=== PATIENT | female | born 1970 | race Caucasian/White ===

== ENCOUNTER 2019-06-26 16:13 | Emergency (ER) | payer OTHER ==
[2019-06-26 16:28] VITALS: BMI 34.9
--- NOTE | 2019-06-26 19:51 | PDOC ---
Attending Attestation - Resident Resident Name: Nikunj Kulkarni - HPI HPI: 06/26/19 19:58 see below - Physicial Exam PE: 06/26/19 19:58 see below - Medical Decision Making 06/26/19 19:59 Patient dressed herself stated she was leaving because she did not want to be in the hospital any longer and has been waiting too long She is awake alert and oriented x4, able to communicate with staff she was again offered evaluation and care which she has refused
[2019-06-26] MEDS ORDERED: SODIUM CHLORIDE 2,517 ML IV ONE (20:38)
--- NOTE | 2019-06-26 20:43 | PDOC ---
History of Present Illness - General Chief Complaint: Weakness Stated Complaint: HEADACHE/DIFFICULTY BREATHING Time Seen by Provider: 06/26/19 19:51 History Source: Patient Exam Limitations: No Limitations - History of Present Illness Initial Comments: 06/26/19 21:27 48 yo female pmh leukemia (receiving chemo and all care through [facility]) CHF on lasix presents to the ED for 1 day of fevers, headaches, left ear pain, CP and back pain with coughing. Pt took motrin at home with some relief of fevers and headaches, last dose at 2 pm. Pt denies recent travel, recent illness, abdominal pain, changes in bowel or bladder habits. Past History - Past Medical History Allergies/Adverse Reactions: Allergies Allergy/AdvReac Type Severity Reaction Status Date / Time No Known Allergies Allergy Unverified 06/26/19 16:28 Cancer: Yes (LEUKEMIA) COPD: No Kidney Stones: Yes - Psycho Social/Smoking Cessation Hx Smoking History: Never smoked Review of Systems - Review of Systems Constitutional: Yes: Chills, Fever HEENTM: Yes: Ear Pain, Throat Pain. No: Ear Discharge Respiratory: Yes: Productive cough. No: Shortness of Breath Cardiac (ROS): Yes: Chest Pain. No: Edema ABD/GI: No: Constipated, Diarrhea, Nausea, Vomiting : No: Burning, Dysuria, Frequency, Flank Pain Musculoskeletal: No: Back Pain Neurological: Yes: Headache. No: Numbness, Paresthesia, Weakness *Physical Exam - Vital Signs Last Vital Signs Temp Pulse Resp BP Pulse Ox 100 F H 131 H 19 120/66 99 06/26/19 19:20 06/26/19 19:20 06/26/19 19:20 06/26/19 19:20 06/26/19 19:20 - Physical Exam General Appearance: Yes: Nourished, Appropriately Dressed, Apparent Distress HEENT: positive: EOMI, BRIGIDA Neck: positive: Supple. negative: Carotid bruit Respiratory/Chest: positive: Lungs Clear, Normal Breath Sounds. negative: Respiratory Distress, Rapid RR, Crackles, Rales, Rhonchi, Stridor, Wheezing Cardiovascular: positive: Regular Rhythm, S1, S2, Tachycardia. negative: Edema , JVD, Murmur Vascular Pulses: Dorsalis-Pedis (R): 4+, Doralis-Pedis (L): 4+ Gastrointestinal/Abdominal: positive: Flat, Soft. negative: Pulsatile Mass, Protuberent, Distended, Guarding, Rebound, Tenderness Musculoskeletal: negative: CVA Tenderness Extremity: positive: Normal Capillary Refill, Normal Inspection Integumentary: positive: Normal Color, Dry, Warm Neurologic: positive: Fully Oriented, Alert, Normal Mood/Affect, Normal Response , Motor Strength 5/5 Medical Decision Making - Medical Decision Making 06/26/19 21:35 48 yo female pmh leukemia (receiving chemo and all care through [facility]) CHF on lasix presents to the ED for 1 day of fevers, headaches, left ear pain, CP and back pain with coughing. Pt took motrin at home with some relief of fevers and headaches, last dose at 2 pm. Pt denies recent travel, recent illness, abdominal pain, changes in bowel or bladder habits. vitals show elevated HR and temp with a pt currently receiving chemo Sepsis work up done, pending results CXR no acute disease Case s/o to night team for further care Discharge - Discharge Information Problems reviewed: Yes Clinical Impression/Diagnosis: Ear pain - Follow up/Referral - Patient Discharge Instructions - Post Discharge Activity
[2019-06-26] MEDS ORDERED: ACETAMINOPHEN 1000 MG/100 ML VIAL (NON FORMULARY) IVPB ONE (21:31)
[2019-06-26 21:37] LABS: VENOUS PC02 40.6 mmHg (38-52); VENOUS PH 7.42 (7.31-7.41); VENOUS PO2 < 49 mmHg (28-48)
[2019-06-26 21:48] LABS: HEMATOCRIT 17.6 % (32.4-45.2); MCH 39.8 pg (25.7-33.7); MCHC 36.3 g/dl (32.0-36.0); MEAN CELL VOLUME 109.7 fl (80-96); MEAN PLT VOLUME 9.8 fl (7.5-11.1); RDW 16.6 % (11.6-15.6)
[2019-06-26] MEDS ORDERED: ACETAMINOPHEN INJECTION 100 ML IVPB ONE (21:52)
[2019-06-26 21:58] LABS: EPI CELLS 1.1 /HPF (0-5/HPF); HYALINE CASTS 1 /lpf (0-8); URINE APPEARANCE CLEAR; URINE BACTERIA 15.1 /hpf (NEGATIVE); URINE BILIRUBIN NEGATIVE (NEGATIVE); URINE COLOR YELLOW; URINE GLUCOSE (UA) NEGATIVE (NEGATIVE); URINE KETONE NEGATIVE (NEGATIVE); URINE LEUK ESTERASE NEGATIVE (NEGATIVE); URINE NITRITE NEGATIVE (NEGATIVE); URINE PROTEIN NEGATIVE (NEGATIVE); URINE RBC 5 /hpf (0-4); URINE UROBILINOGEN 4.0 E.U/dl mg/dL (0.2-1.0); URINE WBC 1 /hpf (0-5)
[2019-06-26 22:25] LABS: HEMOGLOBIN 6.4 GM/dL (10.7-15.3); PLATELET COUNT 5 K/MM3 (134-434); WHITE BLOOD COUNT 0.3 K/mm3 (4.0-10.0)
[2019-06-26 22:30] LABS: ALBUMIN 3.4 g/dl (3.4-5.0); ALK PHOS 185 U/L (45-117); ANION GAP 4 MMOL/L (8-16); BILIRUBIN,TOTAL 2.7 mg/dL (0.2-1); BLOOD UREA NITROGEN 11.3 mg/dL (7-18); CALCIUM 8.5 mg/dL (8.5-10.1); CHLORIDE 111 mmol/L (98-107); CO2 26 mmol/L (21-32); CREATININE 0.4 mg/dL (0.55-1.3); GLUCOSE,RANDOM 124 mg/dL (74-106); SGOT/AST 55 U/L (15-37); SGPT/ALT 129 U/L (13-61); SODIUM 141 mmol/L (136-145)
[2019-06-26 22:32] LABS: INR 1.29 (0.83-1.09); PROTHROMBIN TIME (PATIENT) 15.3 SEC (9.7-13.0)
[2019-06-26] MEDS ORDERED: VANCOMYCIN 1 GM in D5W (PRE-DOCKED) 1,000 MG/250 ML IVPB ONE (22:34)
[2019-06-26] MEDS ORDERED: PIPERACILLIN/TAZOB 4.5 GM 4.5 GM in DEXTROSE 5%-WATER 100 ML IVPB ONE (22:34)
[2019-06-26] MEDS ORDERED: PIPERACILLIN/TAZOB 4.5 GM 4.5 GM/100 ML BAG IVPB ONE (22:39)
[2019-06-26] MEDS ORDERED: VANCOMYCIN 1 GRAM (PRE-DOCKED) 1,000 MG/250 ML BAG IVPB ONE (22:39)
--- NOTE | 2019-06-26 22:49 | PDOC ---
Attending Attestation - Resident Resident Name: Nikunj Kulkarni - ED Attending Attestation I have performed the following: I have examined & evaluated the patient, The case was reviewed & discussed with the resident, I agree w/resident's findings & plan - HPI HPI: 06/26/19 22:46 See resident HPI - Physicial Exam PE: 06/26/19 22:46 agree with resident exam - Medical Decision Making 06/26/19 22:46 48-year-old female with history of leukemia currently on chemotherapy with body aches and fever Plan for sepsis evaluation Will likely transfer to [facility] pending results as patient was requesting to go to this facility and it is in her best interest for continuity of care
[2019-06-26 22:56] LABS: ANISOCYTOSIS 3+; MACROCYTOSIS 1+; OVALOCYTE 1+; PLATELET ESTIMATE DECREASED; ROULEAU 2+
--- NOTE | 2019-06-26 23:35 | PDOC ---
*Physical Exam - Vital Signs Last Vital Signs Temp Pulse Resp BP Pulse Ox 100 F H 131 H 19 120/66 99 06/26/19 19:20 06/26/19 19:20 06/26/19 19:20 06/26/19 19:20 06/26/19 19:20 - Physical Exam 06/26/19 23:34 GENERAL: Awake, alert, and fully oriented, in no acute distress HEAD: No signs of trauma, normocephalic, atraumatic EYES: PERRLA, EOMI, sclera anicteric, conjunctiva clear ENT: BL erythematous TM's. Hearing grossly normal, nares patent, oropharynx clear without exudates. Moist mucosa NECK: Normal ROM, supple, no lymphadenopathy, JVD, or masses LUNGS: No distress, speaks full sentences, clear to auscultation bilaterally HEART: Regular rate and rhythm, normal S1 and S2, no murmurs, rubs or gallops, peripheral pulses normal and equal bilaterally. ABDOMEN: Soft, nontender, normoactive bowel sounds. No guarding, no rebound. No masses EXTREMITIES : Normal inspection, Normal range of motion, no edema. No clubbing or cyanosis NEUROLOGICAL: Cranial nerves II through XII grossly intact. Normal speech, normal gait, no focal sensorimotor deficits SKIN: Warm, Dry, normal turgor, no rashes or lesions noted ED Treatment Course - LABORATORY CBC & Chemistry Diagram: 06/26/19 21:00 06/26/19 21:00 - ADDITIONAL ORDERS Additional order review: Laboratory Results 06/26/19 06/26/19 06/26/19 22:13 21:10 21:00 PT with INR 15.30 H INR 1.29 H PTT (Actin FS) 27.0 VBG pH 7.42 H POC VBG pCO2 40.6 POC VBG pO2 < 49 H VBG HCO3 25.7 VBG O2 Sat (Matthias) 66.3 L VBG Base Excess 1.6 Sodium Potassium Chloride Carbon Dioxide Anion Gap BUN Creatinine Est GFR (CKD-EPI)AfAm Est GFR (CKD-EPI)NonAf Random Glucose Lactic Acid Calcium Total Bilirubin AST ALT Alkaline Phosphatase Troponin I Total Protein Albumin Urine Color Yellow Urine Appearance Clear Urine pH 8.0 Ur Specific [place] 1.017 Urine Protein Negative Urine Glucose (UA) Negative Urine Ketones Negative Urine Blood Trace Urine Nitrite Negative Urine Bilirubin Negative Urine Urobilinogen 4.0 e.u/dl H Ur Leukocyte Esterase Negative Urine WBC (Auto) 1 Urine RBC (Auto) 5 Urine Casts (Auto) 1 U Epithel Cells (Auto) 1.1 Urine Bacteria (Auto) 15.1 06/26/19 06/26/19 21:00 21:00 PT with INR INR PTT (Actin FS) VBG pH POC VBG pCO2 POC VBG pO2 VBG HCO3 VBG O2 Sat (Matthias) VBG Base Excess Sodium 141 Potassium 4.0 Chloride 111 H Carbon Dioxide 26 Anion Gap 4 L BUN 11.3 Creatinine 0.4 L Est GFR (CKD-EPI)AfAm 144.77 Est GFR (CKD-EPI)NonAf 124.91 Random Glucose 124 H Lactic Acid 1.0 Calcium 8.5 Total Bilirubin 2.7 H AST 55 H ALT 129 H Alkaline Phosphatase 185 H Troponin I < 0.02 Total Protein 5.0 L Albumin 3.4 Urine Color Urine Appearance Urine pH Ur Specific [place] Urine Protein Urine Glucose (UA) Urine Ketones Urine Blood Urine Nitrite Urine Bilirubin Urine Urobilinogen Ur Leukocyte Esterase Urine WBC (Auto) Urine RBC (Auto) Urine Casts (Auto) U Epithel Cells (Auto) Urine Bacteria (Auto) 06/26/19 21:00 RBC 1.60 L MCV 109.7 H MCHC 36.3 H RDW 16.6 H MPV 9.8 Neutrophils % No Result Required. Lymphocytes % No Result Required. - RADIOLOGY Radiology Studies Ordered: Category Date Time Status CHEST PA & LAT [RAD] Stat Radiology 06/26/19 21:35 Ordered - Medications Given in the ED: ED Medications Discontinued Medications Generic Name Dose Route Start Last Admin Trade Name Daniele PRN Reason Stop Dose Admin Acetaminophen 1,000 mg 06/26/19 21:31 06/26/19 21:59 Ofirmev Injection - IVPB 06/26/19 21:32 1,000 mg ONCE ONE Administration Sodium Chloride 2,517 mls @ 1,258.5 mls/hr 06/26/19 20:38 06/26/19 21:36 Normal Saline - 30 ml/kg infuse over 2 hr (2517 ml) 06/26/19 22:37 1,258.5 mls/hr IV Administration ONCE ONE Vancomycin HCl 1,000 mg 06/26/19 22:34 06/26/19 22:59 Vancomycin (Pre-Docked) IVPB 06/26/19 22:35 1,000 mg ONCE ONE Administration Protocol Medical Decision Making - Medical Decision Making 06/26/19 23:34 06/26/19 23:29 48 yo F with h/o leukemia (chemotherapy [facility]), CHF on lasix who p/w fevers x 1 day, LANCE, cough. Temp 100, HR 131. Patient endorsed by Dr. Kulkarni. Patient undergoing septic workup. Labs reveal 0.3 WBC, 0.3 Neutrophils, H/H 6.4/17.6, PLT 5, LFT's elevated. CXR unremarkable. Patient with neutropenic fever. started on Vanc/Zosyn, NS, Tylenol. Pending transfer to [facility] for continuity of care. Ed Course: Patient accepted transfer to [facility]. Patient endorsed to call or contact centre team leader [facility] Dr. Michelle Rivera to 7th floor [facility] center Discharge - Discharge Information Problems reviewed: Yes Clinical Impression/Diagnosis: Ear pain, Neutropenic fever Condition: Stable Disposition: TRANSFER ACUTE CARE/OTHER HOSP - Admission Yes - Follow up/Referral - Patient Discharge Instructions - Post Discharge Activity
[2019-06-27 00:07] VITALS: BP 104/50; PULSE 132
[2019-06-27 00:45] VITALS: TEMP 98.6
--- NOTE | 2019-06-27 10:36 | EKG ---
Test Reason : Blood Pressure : / mmHG Vent. Rate : 119 BPM Atrial Rate : 119 BPM P-R Int : 132 ms QRS Dur : 082 ms QT Int : 344 ms P-R-T Axes : 009 001 046 degrees QTc Int : 483 ms SINUS TACHYCARDIA OTHERWISE NORMAL ECG NO PREVIOUS ECGS AVAILABLE Confirmed by JIMMY HOLMAN MD ([id number]) on 06/27/2019 10:36:01 AM Referred By: Confirmed By:JIMMY HOLMAN MD
== END 2019-06-27 01:13 | disposition short-term general hospital (02) ==
LOC: JER 16:13
PROC: 3E0337Z Introduction of Electrolytic and Water Balance Substance into Peripheral Vein, Percutaneous Approach (ICD-10-PCS; principal; 2019-06-26)
PROC: 3E03329 Introduction of Other Anti-infective into Peripheral Vein, Percutaneous Approach (ICD-10-PCS; 2019-06-26)
PROC: 3E03329 Introduction of Other Anti-infective into Peripheral Vein, Percutaneous Approach (ICD-10-PCS; 2019-06-26)
PROC: 3E033NZ Introduction of Analgesics, Hypnotics, Sedatives into Peripheral Vein, Percutaneous Approach (ICD-10-PCS; 2019-06-26)
DX: D70.9 Neutropenia, unspecified (principal); C95.90 Leukemia, unspecified not having achieved remission; Z79.899 Other long term (current) drug therapy; R50.81 Fever presenting with conditions classified elsewhere
CPT/HCPCS: 36415; 71045-TC-FY; 80053; 81003; 82803; 83605; 84484; 85025; 85610; 85730; 87040; 87086; 87804; 93005; 93010; 96361; 96365; 96375; 99285-25; J0131; J7030